=== PATIENT | male | born 1965 | race Caucasian/White ===

== ENCOUNTER 2017-07-22 05:27 | Day surgery (SDC) | payer OTHER ==
[~2017-07-22] VITALS: Ht 175.3 cm; Wt 94.2 kg
--- NOTE | ~2017-07-22 | O ---
[facility] [place] [address] [address] OPERATIVE REPORT Name: ELIANA BEAUCHAMP Room #: 150-1 [facility]..#: [id number] Admission: 07/22/17 Attend Phys: Kavon Eddy MD Discharge: Date of : 61 Report #: [id number] THIS REPORT FOR: //name// CC: DR LUIS FELIPE Silva DATE OF SERVICE: 07/22/2017 PREOPERATIVE DIAGNOSIS: Epigastric hernia. POSTOPERATIVE DIAGNOSIS: Epigastric hernia. PROCEDURE PERFORMED: Repair of epigastric hernia with small Ventralex patch. ANESTHESIA: General. SURGEON: Kavon Eddy MD. COMPLICATIONS: None. ESTIMATED BLOOD LOSS: 2 mL. DESCRIPTION OF PROCEDURE: With the patient under general anesthesia, abdomen prepped and draped in sterile fashion. Timeout was performed. IV antibiotic was administered. A 0.25% Marcaine was used to anesthetize the skin and subcutaneous tissue. Transverse incision of about 3 cm was made above the umbilicus. The patient had a hernia that was located above the umbilicus. The skin was incised and cauterized. Hemostasis obtained. The properitoneal fat that protruded through the fascia was found. This was distinct and from the rest of subcutaneous fat. This lobulated fast about 3 cm in length. This was free from the surrounding subcutaneous tissue. It was somewhat folded and stuck superiorly. I thought, maybe, there is an another defect about 1 cm superior. After that was freed, bowel was examined. I did not see another defect. The main defect measured about 1 cm. Properitoneal fat was then reduced into the properitoneal space. The defect was a slit-like, and I actually enlarged it a little bit transversely. This allowed me to dissect the properitoneal space. Properitoneal space was opened with cautery and blunt dissection. After creating a properitoneal space, a small Ventralex patch was inserted. The fascia superiorly was noted to be pretty thin. The patch should reinforce that area. The patch opened up well. The strap was used after the patch was placed underneath the fascia to evaluate the patch opening. The fascia was already pretty clean. The fascia was closed with 0 Prolene horizontal mattress fashion x 2. This incorporated the strap and the fascial closure. The strap was then trimmed at the fascial level. Subcutaneous tissue was closed with 4-[address] [address] OPERATIVE REPORT Name: ELIANA BEAUCHAMP Room #: 150-1 [facility]#: [id number] Admission: 07/22/17 Attend Phys: Kavon Eddy MD Discharge: Date of : 61 Report #: [id number] Skin was closed with 5-0 PDS. Steri-Strips were applied, 4 x 4, OpSite used for dressing. The patient tolerated procedure well. By: [id number] Kavon Eddy MD /rafat
--- NOTE | ~2017-07-22 | H ---
[facility] [address] [place] [address] HISTORY AND PHYSICAL Name: ELIANA BEAUCHAMP JR Room #: PRE [facility] M.R.#: [id number] Admission: Attend Phys: Kavon Eddy MD Discharge: Date of : 61 Report #: [id number] THIS REPORT FOR: //name// CC: BRYON Silva PREOPERATIVE DIAGNOSIS: Epigastric hernia. HISTORY OF PRESENT ILLNESS: The patient is a 51-year-old who was seen in the office for a hernia located just above the umbilicus. This has been there for the last few years. The hernia is getting bigger. The patient has had some discomfort in the hernia site, which is slightly aggravated by moving a heavy equipment, also when his dog jumps on that area. The patient denies nausea or vomiting. No difficulty urinating or difficulty with bowel movement. He did have a colonoscopy last year, which was normal. He is able to push it back in. The patient does have a history of elevated cholesterol and did have a stress test this week. PAST MEDICAL HISTORY: Elevated cholesterol and fatty liver. The patient denies high blood pressure, denies diabetes, denies heart disease, denies kidney disease. Denies bleeding disorder. Denies history of blood clot. MEDICATIONS: Crestor 20 mg daily. ALLERGIES: None. PAST SURGICAL HISTORY: Had a plastic surgery in the right arm in 1967. FAMILY HISTORY: Father had coronary artery disease, had angioplasty and had trouble having a pacemaker, has history of COPD. Thyroid disease on the mother's side. SOCIAL HISTORY: The patient works in [employer]. Does not smoke. Rarely drinks. REVIEW OF SYSTEMS: The patient has a previous history of histoplasmosis. Wears glasses. The patient denies chest pain, shortness of breath or palpitation. PHYSICAL EXAMINATION: GENERAL: The patient is a well-nourished male, in no acute distress. HEENT: Pupils react to light. Extraocular muscles are intact. NECK: Soft and supple, no masses. LUNGS: Clear to auscultation. HEART: Regular rate and rhythm. No murmur or gallop. ABDOMEN: Soft, nondistended, nontender, no mass or ascites. No rigidity. The [address] [address] HISTORY AND PHYSICAL Name: ELIANA BEAUCHAMP Room #: [facility]..#: [id number] Admission: Attend Phys: Kavon Eddy MD Discharge: Date of : 61 Report #: [id number] patient does have a palpable hernia located above the umbilicus. The protrusion is about 2-3 cm in size. The fascia cannot be palpated. The patient has mild degree of diastasis recti. EXTREMITIES: No cyanosis, clubbing, edema. IMPRESSION: The patient is a 51-year-old with a hernia located above the umbilicus consistent with an epigastric defect. The patient is recommended to have this repaired. Use of mesh for the repair was discussed and recommended. The patient understands the procedure and the risks involved and wishes to proceed. By: [id number] Kavon Eddy MD /nt
[~2017-07-22 05:27] MED LIST: CRESTOR20 MG PO; UNICOMPLEX M TA1 TA1 PO; VITAMIN D1000 UNI1 PO
[2017-07-22 07:51] LABS: HEMATOCRIT 42.6 % (42.0-52.0); HEMOGLOBIN 14.5 gm/dL (14.0-18.0)
[2017-07-22 08:05] VITALS: BP 127/89
[2017-07-22] MEDS ORDERED: NORCO 5-325 TA1 EACH PO (10:07)
[2017-07-22 10:16] VITALS: BP 127/89
== END 2017-07-22 11:15 | disposition home or self-care (01) ==
LOC: OR 05:27 → TBA 05:28 → OR 10:05
PROVIDERS: Anesthesiology
DX: K43.9 Ventral hernia without obstruction or gangrene (principal); E78.00 Pure hypercholesterolemia, unspecified; Z87.891 Personal history of nicotine dependence; Z98.890 Other specified postprocedural states; Z79.891 Long term (current) use of opiate analgesic
CPT/HCPCS: 50010; 50101; 50119; 50386; 50403; 56524; 56525; 62110; 62900; 70005